=== PATIENT | female | born 1990 | race Caucasian/White ===

== ENCOUNTER 2022-12-19 20:54 | Inpatient (IN) | payer BC ==
[2022-12-19] MEDS ORDERED: Activated Charcoal/Sorbitol 25 GM/120 ML TUBE ONE (21:41)
[2022-12-19 21:52] LABS: Bilirubin Negative (Negative); Blood, Urine Negative (Negative); Clarity Clear (Clear); Glucose, Urine (Dipstick) Normal (Negative); Ketone, Urine Negative (Negative); Leukocyte Negative Leu/uL (Negative); Nitrite Negative (Negative); Protein, Urine (Dipstick) Negative (Neg-Trace); Specific Gravity, Urine 1.006 (1.002-1.036); Urobilinogen Normal mg/dL (Less than 2)
[2022-12-19 21:54] LABS: Pregnancy Test - Urine (BHCG) Negative (Negative); Pregu Control Background? CLEAR/WHITE (CLR/WHITE); Pregu Control Bar Appear? YES (CONTROL BAR); Specific Gravity 1.006 (1.002-1.036)
[2022-12-19 22:00] LABS: Amphetamine Not Detected (NotDetected); Barbiturates Screen Not Detected (NotDetected); Benzodiazepine Screen Not Detected (NotDetected); Cocaine Metabolite Screen Not Detected (NotDetected); Methadone Not Detected (NotDetected); Methamphetamine Not Detected (NotDetected); Opiate Screen Not Detected (NotDetected); Oxycodone Screen Not Detected (NotDetected); Phencyclidine (PCP) Not Detected (NotDetected); THC/Cannabinoid Screen Not Detected (NotDetected); Tricyclic Screen Not Detected (NotDetected)
[2022-12-19] MEDS ORDERED: Magnesium 2 GM/50 ML BAG (IN WATER) ONE (22:05)
[2022-12-19] MEDS ORDERED: LORazepam 2 MG/ML SYR.(CARPUJECT) ONE (22:05)
[2022-12-19 22:18] LABS: #Basophils 0.1 thou/uL (0.0-0.2); #Eosinphils 0.2 thou/uL (0.0-0.7); #Lymphocytes 1.5 thou/uL (1.20-3.40); #Monocytes 0.6 thou/uL (0.11-0.59); #Neutrophils 6.7 thou/uL (1.40-6.50); %Basophils 0.7 % (0.0-1.0); %Eosinophils 2.7 % (0.0-10.0); %Lymphocytes 16.1 % (21.0-51.0); %Monocytes 6.2 % (0.0-10.0); %Neutrophils 74.4 % (42.0-75.0); Hemoglobin 13.6 g/dL (12.0-16.0); Mean Corpuscular HGB CONC 34.3 g/dL (32.0-36.0); Mean Corpuscular Hemoglobin 32.8 pg (27.0-31.0); Mean Corpuscular Volume 95.6 fl (78.0-98.0); Mean Platelet Volume 6.9 fL (7.4-10.4); Platelet Count 355 10x3/uL (130-400); RBC Distribution Width 11.6 % (11.5-14.5); Red Blood Cell (RBC) Count 4.15 mill/uL (4.20-5.40); White Blood Cell (WBC) Count 9.1 10x3/uL (4.8-10.8)
[2022-12-19 22:35] LABS: ALT (SGPT) 20 U/L (8-55); AST (SGOT) 16 U/L (5-34); Albumin 3.7 g/dL (3.5-5.0); Alcohol 54 mg/dL (Less than 10); Alkaline Phosphatase 56 U/L (40-110); Anion Gap 13 mmol/L (10-20); BUN (Urea Nitrogen) 12 mg/dL (7.0-18.7); Bilirubin, Total 0.2 mg/dL (0.2-1.2); Calc. Creatinine Clearance 0 mL/min (70-130); Calcium 8.5 mg/dL (7.8-10.44); Carbon Dioxide 21 mmol/L (22-29); Chloride 109 mmol/L (98-107); Estimated GFR 87; Globulin 2.4 g/dL (2.4-3.5); Glucose 104 mg/dL (70-105); Magnesium 1.9 mg/dL (1.6-2.6); Potassium 3.7 mmol/L (3.5-5.1); Protein, Total 6.1 g/dL (6.0-8.3); Sodium 139 mmol/L (136-145)
[2022-12-19 22:36] LABS: Acetaminophen Less than 10.0 mcg/mL (10.0-30.0); Alcohol 55 mg/dL (Less than 10); CK (CPK) 101 U/L (29-168); Salicylate Less than 8.0 mg/dL (15.0-30.0)
[2022-12-20] MEDS ORDERED: Lorazepam 1 MG TAB PO PRN (00:13)
[2022-12-20] MEDS ORDERED: Electrolyte Replacement Protocol 1 EACH FS SCH (00:15)
[2022-12-20] MEDS ORDERED: Lorazepam 2 MG/ML VIAL SLOW IVP PRN (00:31)
[2022-12-20 01:29] LABS: Magnesium 2.4 mg/dL (1.6-2.6); Phosphorus 3.6 mg/dL (2.3-4.7)
[2022-12-20] MEDS: Thiamine HCl 200 MG/2 ML VIAL SLOW IVP SCH (01:40)
[2022-12-20] MEDS: Sodium Chloride 0.9% 1,000 ML IV SCH ×2 (01:40→18:51)
[2022-12-20 04:40] VITALS: BMI 51.2
[2022-12-20 05:21] LABS: SARS-CoV-2 NAA Rapid Test Not Detected (NotDetected)
[2022-12-20 06:09] LABS: #Basophils 0.1 thou/uL (0.0-0.2); #Eosinphils 0.2 thou/uL (0.0-0.7); #Lymphocytes 1.8 thou/uL (1.20-3.40); #Monocytes 0.6 thou/uL (0.11-0.59); #Neutrophils 5.8 thou/uL (1.40-6.50); %Basophils 0.8 % (0.0-1.0); %Eosinophils 2.2 % (0.0-10.0); %Lymphocytes 20.6 % (21.0-51.0); %Monocytes 7.5 % (0.0-10.0); %Neutrophils 68.9 % (42.0-75.0); Mean Corpuscular HGB CONC 33.6 g/dL (32.0-36.0); Mean Corpuscular Hemoglobin 32.2 pg (27.0-31.0); Mean Corpuscular Volume 95.7 fl (78.0-98.0); Mean Platelet Volume 6.9 fL (7.4-10.4); Platelet Count 331 10x3/uL (130-400); RBC Distribution Width 11.8 % (11.5-14.5); Red Blood Cell (RBC) Count 4.03 mill/uL (4.20-5.40); White Blood Cell (WBC) Count 8.5 10x3/uL (4.8-10.8)
[2022-12-20 06:33] LABS: Alcohol Less than 10 mg/dL (Less than 10); Anion Gap 11 mmol/L (10-20); BUN (Urea Nitrogen) 9 mg/dL (7.0-18.7); Calc. Creatinine Clearance 228 mL/min (70-130); Calcium 8.1 mg/dL (7.8-10.44); Carbon Dioxide 23 mmol/L (22-29); Chloride 108 mmol/L (98-107); Estimated GFR 116; Glucose 90 mg/dL (70-105); Potassium 4.3 mmol/L (3.5-5.1); Sodium 138 mmol/L (136-145)
[2022-12-20] MEDS: Multivit, Therapeutic 1 TAB PO SCH (10:04)
[2022-12-20] MEDS: Folic Acid 1 MG TAB PO SCH (10:04)
[2022-12-20] MEDS ORDERED: Melatonin 3 MG TAB PO PRN (15:49)
[2022-12-21] MEDS ORDERED: Lorazepam 1 MG TAB PO PRN (00:13)
[2022-12-21] MEDS: Thiamine HCl 200 MG/2 ML VIAL SLOW IVP SCH (00:55)
[2022-12-21 03:57] LABS: Free T4 (Free Thyroxine) 1.15 ng/dL (0.70-1.48)
[2022-12-21 04:23] LABS: Chloride 108 mmol/L (98-107); Potassium 4.2 mmol/L (3.5-5.1); Sodium 138 mmol/L (136-145)
[2022-12-21 04:25] LABS: Anion Gap 13 mmol/L (10-20); Calcium 8.3 mg/dL (7.8-10.44); Glucose 86 mg/dL (70-105)
[2022-12-21 04:26] LABS: Carbon Dioxide 21 mmol/L (22-29)
[2022-12-21 04:27] LABS: Calc. Creatinine Clearance 228 mL/min (70-130); Estimated GFR 116
[2022-12-21 04:28] LABS: BUN (Urea Nitrogen) 8 mg/dL (7.0-18.7)
[2022-12-21] MEDS: Levothyroxine Sodium 50 MCG TAB PO SCH (06:23)
[2022-12-21] MEDS: Sodium Chloride 0.9% 1,000 ML IV SCH ×2 (06:24→19:29)
[2022-12-21] MEDS: Escitalopram Oxalate 10 mg Tablet PO SCH (08:25)
[2022-12-21] MEDS: Multivit, Therapeutic 1 TAB PO SCH (08:25)
[2022-12-21] MEDS: Folic Acid 1 MG TAB PO SCH (08:26)
[2022-12-21] MEDS: busPIRone HCl 5 MG TAB PO SCH (08:26)
[2022-12-21 22:39] VITALS: BP 130/78
[2022-12-22] MEDS: Lorazepam 0.5 MG TAB PO SCH ×3 (00:34→06:20)
[2022-12-22] MEDS: Thiamine HCl 200 MG/2 ML VIAL SLOW IVP SCH (00:35)
[2022-12-22] MEDS: Sodium Chloride 0.9% 1,000 ML IV SCH (06:03)
[2022-12-22] MEDS: Levothyroxine Sodium 50 MCG TAB PO SCH (06:19)
[2022-12-22] MEDS: busPIRone HCl 5 MG TAB PO SCH (09:03)
[2022-12-22] MEDS: Escitalopram Oxalate 10 mg Tablet PO SCH (09:03)
[2022-12-22] MEDS: Multivit, Therapeutic 1 TAB PO SCH (09:03)
[2022-12-22] MEDS: Folic Acid 1 MG TAB PO SCH (09:03)
[2022-12-22 12:02] VITALS: TEMP 97.7
[2022-12-23] MEDS ORDERED: Lorazepam 0.5 MG TAB PO PRN (00:13)
[2022-12-23] MEDS ORDERED: Thiamine 100 MG TAB PO SCH (09:00)
== END 2022-12-22 12:00 | DRG 918 ==
LOC: ERS 20:54 → ERHOLD 23:26 → IMCU/EMU 12-20 07:40
PROVIDERS: ADMIT Student in an Organized Health Care Education/Training Program; ATTEND Hospitalist
DX: T43.222A Poisoning by selective serotonin reuptake inhibitors, intentional self-harm, initial encounter (principal); T38.1X2A Poisoning by thyroid hormones and substitutes, intentional self-harm, initial encounter; F41.9 Anxiety disorder, unspecified; E03.9 Hypothyroidism, unspecified; F32.9 Major depressive disorder, single episode, unspecified; R94.31 Abnormal electrocardiogram [ECG] [EKG]; T43.592A Poisoning by other antipsychotics and neuroleptics, intentional self-harm, initial encounter; Z79.899 Other long term (current) drug therapy; Z79.890 Hormone replacement therapy; Z20.822 Contact with and (suspected) exposure to COVID-19
CPT/HCPCS: 36415; 80048; 80053; 80306; 80307; 81003; 81025; 82550; 83735; 84100; 84439; 84443; 84481; 85025; 93005; 93010; 96374; 96375; J1650; J2060; J3411; J3475; J7050; U0002